=== PATIENT | female | born 1955 | race African-American/Black ===

== ENCOUNTER 2023-08-21 10:55 | Emergency (ER) | payer OTHER, MEDICARE ==
[~2023-08-21] VITALS: Ht 170.2 cm; Wt 90.0 kg
[~2023-08-21 10:55] MED LIST: ALIS1TAB2 PO; AMLO1TAB15 PO; ASPI81TA84 PO; BUPR-345 PO; LEVO150 PO; NEBI5TAB11 PO
[2023-08-21 11:17] VITALS: TEMP 97.9
[2023-08-21] MEDS: IBUPROFEN 600 MG TABLET PO ONE (13:03)
[2023-08-21] MEDS ORDERED: METH-659 PO (13:42)
[2023-08-21] MEDS ORDERED: IBUP-1492 PO (13:42)
[2023-08-21 13:57] VITALS: BP 165/70; PULSE 75; RESP 16
== END 2023-08-21 14:16 | disposition home or self-care (01) ==
LOC: EMS 10:55
DX: S13.4XXA Sprain of ligaments of cervical spine, initial encounter (principal); I10 Essential (primary) hypertension; V49.88XA Car occupant (driver) (passenger) injured in other specified transport accidents, initial encounter; Y93.89 Activity, other specified; Y92.89 Other specified places as the place of occurrence of the external cause; Y99.8 Other external cause status
CPT/HCPCS: 99283